=== PATIENT | female | born 1935 | race Caucasian/White ===

== ENCOUNTER 2018-01-15 10:10 | Emergency (ER) | payer MEDICARE, BC ==
[2018-01-15] MEDS ORDERED: Amoxicillin/Potassium Clav 500 MG TAB ONE (11:05)
[2018-01-15] MEDS ORDERED: Triple Antibiotic Oint 1 GM Packet ONE (11:07)
== END 2018-01-15 11:05 | disposition home or self-care (01) ==
LOC: MADERS 10:10
DX: S61.511A Laceration without foreign body of right wrist, initial encounter (principal); S61.431A Puncture wound without foreign body of right hand, initial encounter; E11.9 Type 2 diabetes mellitus without complications; I10 Essential (primary) hypertension; Z79.82 Long term (current) use of aspirin; Z79.84 Long term (current) use of oral hypoglycemic drugs; Z79.899 Other long term (current) drug therapy; Z79.51 Long term (current) use of inhaled steroids; Z79.01 Long term (current) use of anticoagulants; W54.0XXA Bitten by dog, initial encounter
CPT/HCPCS: 12001